=== PATIENT | male | born 1965 | race Caucasian/White ===

== ENCOUNTER 2023-02-11 09:55 | Emergency (ER) | payer SELFPAY ==
[~2023-02-11] VITALS: Ht 162.6 cm; Wt 77.0 kg
[2023-02-11 11:23] LABS: BASOPHILS % 0.9 % (0.0-2.0); EOSINOPHILS % 2.4 % (0.0-5.0); HEMATOCRIT. 43.1 % (42.0-52.0); HEMOGLOBIN. 14.2 g/dL (14.0-18.0); LYMPHOCYTES % 20.9 % (20.0-50.0); MEAN CORPUSCULAR HEMOGLOBIN 32.5 pg (28.0-32.0); MEAN CORPUSCULAR VOLUME 98.6 fL (80.0-94.0); MEAN PLATELET VOLUME 6.3 fl (7.4-10.4); NEUTROPHILS % 68.8 % (40.0-76.0); PLATELET 283 x1000/uL (130-400); RED BLOOD CELL COUNT 4.37 mill/uL (4.7-6.1); RED CELL DISTRIBUTION WIDTH 13.9 % (11.6-14.6)
[2023-02-11 11:33] LABS: CHLORIDE 114 mEq/L (98-107)
[2023-02-11 11:46] LABS: ETHANOL BLOOD 392 mg/dL
[2023-02-11 14:39] VITALS: BP 148/92
== END 2023-02-11 16:00 | disposition home or self-care (01) ==
LOC: ER 10:42
DX: F10.229 Alcohol dependence with intoxication, unspecified (principal); Y90.8 Blood alcohol level of 240 mg/100 ml or more; E86.0 Dehydration
CPT/HCPCS: 36415; 80048; 80320; 82962; 85025; 99283; G0480